=== PATIENT | female | born 1935 | race Caucasian/White ===

== ENCOUNTER → 2018-03-22 | Outpatient (CLI) | payer MEDICARE, OTHER | END | disposition home or self-care (01) | LOC: XYW 10:00 | PROVIDERS: ATTEND Internal Medicine Cardiovascular Disease | DX: I08.3 Combined rheumatic disorders of mitral, aortic and tricuspid valves (principal); I48.2 Chronic atrial fibrillation | CPT/HCPCS: 93306 ==

== ENCOUNTER → 2019-09-21 | Outpatient (CLI) | payer MEDICARE, OTHER | END | disposition home or self-care (01) | LOC: XYW 08:23 | PROVIDERS: ATTEND Internal Medicine | DX: Z01.810 Encounter for preprocedural cardiovascular examination (principal); I48.20 Chronic atrial fibrillation, unspecified; R07.89 Other chest pain | CPT/HCPCS: 93306 ==

== ENCOUNTER → 2023-03-29 | Outpatient (CLI) | payer MEDICARE, OTHER | END | disposition home or self-care (01) | LOC: XYW 12:45 | PROVIDERS: ATTEND Student in an Organized Health Care Education/Training Program | DX: I08.1 Rheumatic disorders of both mitral and tricuspid valves (principal) | CPT/HCPCS: 93306 ==